=== PATIENT | male | born 1995 | race Caucasian/White ===

== ENCOUNTER 2022-07-29 00:01 | Emergency (ER) | payer BC ==
[2022-07-29] MEDS ORDERED: Lidocaine 1% 10 ML MDV INJECT ONE (00:54)
== END 2022-07-29 02:45 | disposition home or self-care (01) ==
LOC: JD.ED 00:01
DX: S67.193A Crushing injury of left middle finger, initial encounter (principal); S61.213A Laceration without foreign body of left middle finger without damage to nail, initial encounter; Z72.0 Tobacco use; W23.0XXA Caught, crushed, jammed, or pinched between moving objects, initial encounter; Y92.89 Other specified places as the place of occurrence of the external cause; Y99.0 Civilian activity done for income or pay
CPT/HCPCS: 12001; 73140-26-F2; 73140-F2; 99283